=== PATIENT | male | born 1945 | race Caucasian/White ===

== ENCOUNTER 2016-08-23 15:50 | Emergency (ER) | payer MEDICARE, BC ==
--- NOTE | 2016-08-23 16:08 | EDM.PDOC ---
<Angel Short - Last Filed: 08/23/16 19:12> ED HPI GENERAL MEDICAL PROBLEM - General Chief Complaint: Fever Stated Complaint: [id number] SICK SINCE THRUSDAY Time Seen by Provider: 08/23/16 16:08 Source of Information: Reports: Patient, Family, Old records, RN, RN notes reviewed History Limitations: Reports: No limitations - History of Present Illness INITIAL COMMENTS - FREE TEXT/NARRATIVE: Sent from clinic by YVONNE Giles with complaint of fever, headache, nausea and "body aches" x1 week. Patient was seen in clinic yesterday and started on doxycycline empirically. Today patient continued with fever up to 102.9 F and had onset of vomiting. Denies sore throat, cough or any other symptoms. Location: Reports: head, other (generalized) Quality: Reports: Ache Severity: severe Improves with: Reports: None Worsens with: Reports: None Associated Symptoms: Reports: no other symptoms Bilateral Hip Pain Score (Numeric/FACES): 5 - Related Data Allergies Allergy/AdvReac Type Severity Reaction Status Date / Time morphine Allergy Nausea and Verified 11/13/14 05:25 Vomiting Penicillins Allergy Rash Verified 11/13/14 05:25 Home Meds: Home Meds Aspirin [Low Dose Aspirin EC] 81 mg PO DAILY 11/13/14 [History] Losartan/Hydrochlorothiazide [Losartan-HCTZ 50-12.5 MG] 1 each PO DAILY [History] Simvastatin [Simvastatin] 20 mg PO QPM 11/13/14 [History] metFORMIN [Glucophage] 500 mg PO BIDMEALS 11/13/14 [History] Doxycycline [Vibramycin] 100 mg PO BID 08/23/16 [History] Lutein 20 mg PO BEDTIME 08/23/16 [History] prednisoLONE [Prelone 5 MG/5 ML] 1 drop EYEBOTH QID 08/23/16 [History] Social & Family History - Family History Family Medical History: Noncontributory - Tobacco Use Smoking Status *Q: Never Smoker Second Hand Smoke Exposure: No - Recreational Drug Use Recreational Drug Use: No ED ROS GENERAL - Review of Systems Review Of Systems: ROS reveals no pertinent complaints other than HPI. ED EXAM, GENERAL - Physical Exam Exam: See Below Exam Limited By: No limitations General Appearance: alert, WD/WN, no apparent distress Eye Exam: bilateral eye: normal inspection Ears: normal external exam, normal canal, hearing grossly normal, normal TMs Nose: other (normal except dry oral membranes.) Throat/Mouth: Normal inspection, Normal lips, Normal teeth, Normal gums, Normal oropharynx, Normal voice, No airway compromise Head: atraumatic, normocephalic Neck: other (no nuchal rigidity) Respiratory/Chest: other (decreased sounds in bilateral bases.) Cardiovascular: normal peripheral pulses, regular rate, rhythm, no edema, no gallop, no JVD, no murmur, no rub GI/Abdominal: normal bowel sounds, soft, non tender, no organomegaly, no distention, no abnormal bruit, no mass Back Exam: normal inspection, full range of motion, NT Extremities: normal inspection, normal range of motion, non-tender, normal capillary refill, no pedal edema Neurological: alert, oriented, CN II-XII intact, normal cognition, normal gait, normal reflexes, no motor/sensory deficits Psychiatric: normal affect, normal mood Skin Exam: Warm, Dry, Intact, Normal color, No rash Lymphatic: no adenopathy Course - Vital Signs Last Recorded V/S: Last Vital Signs Temp 37.9 C 08/23/16 18:35 Pulse 83 08/23/16 18:35 Resp 16 08/23/16 18:35 BP 128/68 08/23/16 18:35 Pulse Ox 94 L 08/23/16 18:35 - Orders/Labs/Meds Orders: Active Orders 24 hr Category Date Time Status Peripheral IV Care [RC] . DIRECTED Care 08/23/16 16:30 Active CULTURE BLOOD [BC] Stat Lab 08/23/16 16:20 Received CULTURE BLOOD [BC] Stat Lab 08/23/16 16:47 Received CULTURE STREP A CONFIRMATION [RM] Stat Lab 08/23/16 16:25 Results STREP SCRN A RAPID W CULT CONF [RM] Stat Lab 08/23/16 16:25 Results Cephalexin [Keflex] Med 08/23/16 20:52 Once 500 mg PO ONETIME ONE Sodium Chloride 0.9% [Saline Flush] Med 08/23/16 16:30 Active 10 ml FLUSH ASDIRECTED PRN Blood Culture x2 Reflex Set [OM.PC] Stat Oth 08/23/16 16:30 Ordered Peripheral IV Insertion Adult [OM.PC] Stat Oth 08/23/16 16:29 Ordered Medication Orders Cephalexin (Keflex) 500 mg PO ONETIME ONE Stop: 08/23/16 20:53 Sodium Chloride (Saline Flush) 10 ml FLUSH ASDIRECTED PRN PRN Reason: Keep Vein Open Last Admin: 08/23/16 16:20 Dose: 10 ml Labs: Laboratory Tests 08/23/16 08/23/16 08/23/16 Range/Units 16:20 16:20 16:47 WBC 9.3 (5.0-10.0) 10^3/uL RBC 4.64 (4.6-6.2) 10^6/uL Hgb 14.0 (14.0-18.0) g/dL Hct 39.9 L (40.0-54.0) % MCV 86.0 (80-100) fL MCH 30.2 (27.0-34.0) pg MCHC 35.1 H (33.0-35.0) g/dL Plt Count 117 L (150-450) 10^3/uL Neut % (Auto) 89.2 H (42.2-75.2) % Lymph % (Auto) 4.1 L (20.5-50.1) % [place] % (Auto) 6.5 (2-8) % Eos % (Auto) 0.1 L (1.0-3.0) % Baso % (Auto) 0.1 (0.0-1.0) % Sodium 135 (135-145) mmol/L Potassium 3.9 (3.6-5.0) mmol/L Chloride 99 L (101-111) mmol/L Carbon Dioxide 28.0 (21.0-31.0) mmol/L Anion Gap 11.9 BUN 21 H (7-18) mg/dL Creatinine 1.0 (0.6-1.3) mg/dL Est Cr Clr Drug Dosing 75.30 mL/min Estimated GFR (MDRD) > 60 BUN/Creatinine Ratio 21.00 Glucose 166 H (74-105) mg/dL Lactic Acid 1.4 (0.5-2.2) mmol/L Calcium 8.4 (8.4-10.2) mg/dl Total Bilirubin 1.0 (0.2-1.0) mg/dL AST 30 (10-42) IU/L ALT 23 (10-60) IU/L Alkaline Phosphatase 52 (42-121) IU/L Total Protein 6.6 L (6.7-8.2) g/dl Albumin 4.0 (3.2-5.5) g/dl Globulin 2.6 Albumin/Globulin Ratio 1.54 Amylase 28 (28-100) U/L Lipase 17 L (22-51) U/L Urine Color (YELLOW) Urine Appearance (CLEAR) Urine pH (5.0-9.0) Ur Specific Leiter (1.005-1.030) Urine Protein (NEGATIVE) Urine Glucose (UA) (NEGATIVE) Urine Ketones (NEGATIVE) Urine Occult Blood (NEGATIVE) Urine Nitrite (NEGATIVE) Urine Bilirubin (NEGATIVE) Urine Urobilinogen (0.2-1.0) mg/dL Ur Leukocyte Esterase (NEGATIVE) Urine RBC /HPF Urine WBC (0-5/HPF) /HPF Ur Epithelial Cells /HPF Urine Bacteria (0-FEW/HPF) /HPF Urine Mucus /LPF 08/23/16 Range/Units 18:10 WBC (5.0-10.0) 10^3/uL RBC (4.6-6.2) 10^6/uL Hgb (14.0-18.0) g/dL Hct (40.0-54.0) % MCV (80-100) fL MCH (27.0-34.0) pg MCHC (33.0-35.0) g/dL Plt Count (150-450) 10^3/uL Neut % (Auto) (42.2-75.2) % Lymph % (Auto) (20.5-50.1) % [place] % (Auto) (2-8) % Eos % (Auto) (1.0-3.0) % Baso % (Auto) (0.0-1.0) % Sodium (135-145) mmol/L Potassium (3.6-5.0) mmol/L Chloride (101-111) mmol/L Carbon Dioxide (21.0-31.0) mmol/L Anion Gap BUN (7-18) mg/dL Creatinine (0.6-1.3) mg/dL Est Cr Clr Drug Dosing mL/min Estimated GFR (MDRD) BUN/Creatinine Ratio Glucose (74-105) mg/dL Lactic Acid (0.5-2.2) mmol/L Calcium (8.4-10.2) mg/dl Total Bilirubin (0.2-1.0) mg/dL AST (10-42) IU/L ALT (10-60) IU/L Alkaline Phosphatase (42-121) IU/L Total Protein (6.7-8.2) g/dl Albumin (3.2-5.5) g/dl Globulin Albumin/Globulin Ratio Amylase (28-100) U/L Lipase (22-51) U/L Urine Color Yellow (YELLOW) Urine Appearance Clear (CLEAR) Urine pH 6.5 (5.0-9.0) Ur Specific Leiter 1.025 (1.005-1.030) Urine Protein 30 H (NEGATIVE) Urine Glucose (UA) 100 H (NEGATIVE) Urine Ketones 40 H (NEGATIVE) Urine Occult Blood Negative (NEGATIVE) Urine Nitrite Negative (NEGATIVE) Urine Bilirubin Negative (NEGATIVE) Urine Urobilinogen 1.0 (0.2-1.0) mg/dL Ur Leukocyte Esterase Negative (NEGATIVE) Urine RBC 0-5 /HPF Urine WBC 0-5 (0-5/HPF) /HPF Ur Epithelial Cells Rare /HPF Urine Bacteria Occasional (0-FEW/HPF) /HPF Urine Mucus Moderate H /LPF Meds: Medications Generic Name Dose Route Start Last Admin Trade Name Freq PRN Reason Stop Dose Admin Cephalexin 500 mg 08/23/16 20:52 Keflex PO 08/23/16 20:53 ONETIME ONE Sodium Chloride 10 ml 08/23/16 16:30 08/23/16 16:20 Saline Flush FLUSH 10 ml ASDIRECTED PRN Administration Keep Vein Open Discontinued Medications Generic Name Dose Route Start Last Admin Trade Name Freq PRN Reason Stop Dose Admin Diphenhydramine HCl 25 mg 08/23/16 17:47 08/23/16 17:58 Benadryl IVPUSH 08/23/16 17:48 25 mg ONETIME ONE Administration Sodium Chloride 1,000 mls @ 999 mls/hr 08/23/16 16:31 08/23/16 16:30 Normal Saline IV 08/23/16 17:31 999 mls/hr .BOLUS ONE Administration Sodium Chloride 1,000 mls @ 999 mls/hr 08/23/16 17:40 08/23/16 17:42 Normal Saline IV 08/23/16 18:40 999 mls/hr .BOLUS ONE Administration Azithromycin 500 mg/ Sodium 250 mls @ 250 mls/hr 08/23/16 17:48 08/23/16 18: 34 Chloride IV 08/23/16 18:47 250 mls/hr ONETIME ONE Administration Ceftriaxone Sodium 1 gm/ 50 mls @ 100 mls/hr 08/23/16 17:48 08/23/16 18:02 Sodium Chloride IV 08/23/16 18:17 100 mls/hr ONETIME ONE Administration Iopamidol 100 ml 08/23/16 18:43 08/23/16 19:10 Isovue-370 (76%) IVPUSH 08/23/16 18:44 75 ml ONETIME ONE Administration Ketorolac Tromethamine 30 mg 08/23/16 16:31 08/23/16 16:45 Toradol IVPUSH 08/23/16 16:32 30 mg ONETIME ONE Administration Ondansetron HCl 4 mg 08/23/16 16:31 08/23/16 16:41 Zofran IV 08/23/16 16:32 4 mg ONETIME ONE Administration - Re-Assessments/Exams Free Text/Narrative Re-Assessment/Exam: Rapid strep: Negative. Influenza A/B: Negative. Departure - Departure Disposition: Home, Self-Care 01 Clinical Impression: Pneumonia Qualifiers: Pneumonia type: due to unspecified organism Laterality: bilateral Lung location : lower lobe of lung Qualified Code(s): J18.9 - Pneumonia, unspecified organism Care Plan Goals: The patient was advised of the examination, lab and CT results during the visit. The patient was given IV antibiotics, IV fluids and oral Tylenol while in the ED. The patient was discharged with a script for Keflex (500 mg) #30 to take 1 by mouth 3 times per day for 10 days. If the patient has any additional symptoms or concerns, the patient should follow-up with her primary care facility or return to the emergency department. - My Orders Last 24 Hours: My Active Orders 08/23/16 20:52 Cephalexin [Keflex] 500 mg PO ONETIME ONE - Assessment/Plan Last 24 Hours: My Active Orders 08/23/16 20:52 Cephalexin [Keflex] 500 mg PO ONETIME ONE <Jose Antonio Palacios - Last Filed: 08/23/16 21:02> Course - Re-Assessments/Exams Free Text/Narrative Re-Assessment/Exam: 08/23/16 20:53 Patient care taken over at shift change. CT results reviewed demonstrating consolidation in lung bases (no PE). Results were reviewed with the patient and spouse. The patient was given an oral dose of Keflex. Departure - Departure Time of Disposition: 20:54 Condition: fair
[2016-08-23] MEDS ORDERED: Sodium Chloride 0.9% 10 ML Syringe FLUSH PRN (16:30)
[2016-08-23] MEDS ORDERED: Sodium Chloride 0.9% 1,000 ML IV ONE ×2 (16:31→17:40)
[2016-08-23] MEDS ORDERED: Ondansetron 4 MG/2 ML SDV IV ONE (16:31)
[2016-08-23] MEDS ORDERED: Ketorolac 30 MG/ML SDV IVPUSH ONE (16:31)
[2016-08-23 17:03] LABS: CHLORIDE,CL 99 mmol/L (101-111); SODIUM,NA 135 mmol/L (135-145)
[2016-08-23] MEDS ORDERED: diphenhydrAMINE 50 MG/ML SDV IVPUSH ONE (17:47)
[2016-08-23] MEDS ORDERED: cefTRIAXone 1 GM in Sodium Chloride 0.9% 50 ML IV ONE (17:48)
[2016-08-23] MEDS ORDERED: Azithromycin 500 MG in Sodium Chloride 0.9% 250 ML IV ONE (17:48)
[2016-08-23 18:36] VITALS: BP 128/68
[2016-08-23] MEDS ORDERED: Iopamidol 755 Mg/ML 100 ML Bottle IVPUSH ONE (18:43)
[2016-08-23] MEDS ORDERED: Cephalexin 500 MG Cap PO ONE (20:52)
[2016-08-23] MEDS ORDERED: Acetaminophen 325 MG Tab PO ONE (20:57)
== END 2016-08-23 21:19 | disposition home or self-care (01) ==
LOC: DL.ED 15:50
DX: J18.9 Pneumonia, unspecified organism (principal); Z79.82 Long term (current) use of aspirin; Z79.84 Long term (current) use of oral hypoglycemic drugs; Z79.899 Other long term (current) drug therapy; Z88.0 Allergy status to penicillin; Z88.5 Allergy status to narcotic agent
CPT/HCPCS: 36415; 71260; 80053; 81001; 82150; 83605; 83690; 85025; 87040; 87081; 87430; 87804; 96361; 96365; 96367; 96375; 99284; A9270; J0456; J0696; J1200; J1885; J2405; J7030; J7050; Q9967

== ENCOUNTER 2017-02-11 18:16 | Inpatient (IN) | payer MEDICARE, BC ==
[2017-02-11] MEDS ORDERED: Ketorolac 30 MG/ML SDV IVPUSH ONE (18:50)
[2017-02-11] MEDS ORDERED: Sodium Chloride 0.9% 1,000 ML IV ONE (18:50)
[2017-02-11] MEDS ORDERED: Ondansetron 4 MG/2 ML SDV IV ONE (18:50)
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
[2017-02-11 19:08] LABS: CHLORIDE,CL 102 mmol/L (101-111); SODIUM,NA 138 mmol/L (135-145)
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
[2017-02-11] MEDS ORDERED: Docusate Sodium 100 MG Cap PO PRN (21:21)
[2017-02-11] MEDS ORDERED: Acetaminophen 325 MG Tab PO PRN (21:21)
[2017-02-11] MEDS ORDERED: Simvastatin 40 MG Tab PO SCH (21:30)
[2017-02-11] MEDS ORDERED: Sodium Chloride 0.9% 1,000 ML IV SCH (21:30)
[2017-02-11] MEDS ORDERED: Ondansetron 4 MG/2 ML SDV IV PRN (21:35)
[2017-02-11] MEDS: Heparin Sodium 5,000 Units/ML Vial SUBCUT SCH (23:17)
[2017-02-12] MEDS: Heparin Sodium 5,000 Units/ML Vial SUBCUT SCH ×2 (05:28→14:44)
[2017-02-12] MEDS ORDERED: Ciprofloxacin in D5W 400 MG in Premix Bag 1 BAG IV SCH ×2 (07:00)
[2017-02-12 07:03] LABS: CHLORIDE,CL 104 mmol/L (101-111); SODIUM,NA 138 mmol/L (135-145)
[2017-02-12] MEDS ORDERED: metFORMIN 500 MG Tab PO SCH (08:00)
[2017-02-12] MEDS: Aspirin 81 MG Tab.EC PO SCH ×2 (08:17→08:22)
[2017-02-12] MEDS ORDERED: Hydrochlorothiazide 25 MG Tab PO SCH (09:00)
[2017-02-12] MEDS ORDERED: Losartan 50 MG Tab PO SCH (09:00)
[2017-02-12 11:33] VITALS: BP 118/60
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
== END 2017-02-12 14:22 | disposition home or self-care (01) | DRG 948 ==
LOC: DL.ED 18:16 → DL.MS 19:58
PROVIDERS: ADMIT Internal Medicine Nephrology; ATTEND Internal Medicine Nephrology
DX: R53.1 Weakness (principal); E86.0 Dehydration; K52.9 Noninfective gastroenteritis and colitis, unspecified; R10.10 Upper abdominal pain, unspecified; R11.10 Vomiting, unspecified; I10 Essential (primary) hypertension; E11.9 Type 2 diabetes mellitus without complications; E78.00 Pure hypercholesterolemia, unspecified; E78.5 Hyperlipidemia, unspecified; R11.2 Nausea with vomiting, unspecified; Z79.84 Long term (current) use of oral hypoglycemic drugs; Z88.6 Allergy status to analgesic agent; Z79.82 Long term (current) use of aspirin; Z88.0 Allergy status to penicillin; Z79.899 Other long term (current) drug therapy
CPT/HCPCS: 36415; 80053; 82150; 83690; 85025; 96374; 96375; 99284; J1885; J2405; J7030; 80048; 82962; 84484; 87040; A9270-GY; J0744; J1644